=== PATIENT | male | born 1955 | race Two or more races ===

== ENCOUNTER → 2018-02-18 | Outpatient (CLI) | payer OTHER ==
[~2018-02-18] MED LIST: ALB17R IH; HYDR-2946 PO; IBUP1TAB PO
--- NOTE | 2018-02-18 13:08 | EKG ---
FACILITY: [facility] - [place], [place] PATIENT NAME: LAMONT MALDONADO : [id number] MR: [id number] V: [id number] EXAM DATE: ORDERING PHYSICIAN: ARMAND HORTON TECHNOLOGIST: TROY Medley Reason : preop-right knee Blood Pressure : / mmHG Vent. Rate : 050 BPM Atrial Rate : 050 BPM P-R Int : 176 ms QRS Dur : 108 ms QT Int : 424 ms P-R-T Axes : 032 154 057 degrees QTc Int : 386 ms Sinus bradycardia Otherwise normal ECG No previous ECGs available Confirmed by ARMAND SANCHES ([id number]) on 02/18/2018 9:06:45 PM Referred By: Confirmed By:ARMAND SANCHES
== END ==
LOC: RESP 12:58
PROVIDERS: ATTEND Anesthesiology
DX: Z01.810 Encounter for preprocedural cardiovascular examination (principal); Z01.812 Encounter for preprocedural laboratory examination; R00.1 Bradycardia, unspecified; S83.241A Other tear of medial meniscus, current injury, right knee, initial encounter
CPT/HCPCS: 93005